=== PATIENT | male | born 1975 | race Caucasian/White ===

== ENCOUNTER 2018-08-20 17:50 | Emergency (ER) | payer BC ==
[~2018-08-20] VITALS: Ht 172.7 cm; Wt 85.5 kg
[~2018-08-20 17:50] MED LIST: ACCUPRIL5 MG PO; ADVAIR DISK1 INH; ALBUTEROL0.5 % IN; AZTREONAM IN; COLISTIMETHATE IN; CREON12000 UNT PO; KEFLEX250 MG PO; KEFLEX500 MG PO; LORTAB 5/3255 MG PO; MUPIROCIN2 % EX; PREVACID30 M1 OR; TRAMADOL HCL50 MG PO; ZITHROMAX250 MG OR; [UNRECOGNIZED DRUG - OTHER] INH; [UNRECOGNIZED DRUG - OTHER] OR
[2018-08-20 19:03] LABS: INFLUENZA B NONE DETECTED (NONE DETECT)
[2018-08-20] MEDS ORDERED: AZITHROMYCIN1 GM PO (19:17)
[2018-08-20] MEDS ORDERED: PULMOZYME1 MG/ML IN (19:18)
[2018-08-20] MEDS ORDERED: TRAMADOL HCL50 MG PO (19:18)
[2018-08-20] MEDS ORDERED: SERTRALINE50 MG PO (19:18)
[2018-08-20] MEDS ORDERED: [UNRECOGNIZED DRUG - OTHER] (20:00)
[2018-08-20] MEDS ORDERED: TOBI300 MG/5 M IN (20:01)
[2018-08-20 20:28] LABS: IMMATURE GRANULOCYTES 0.4 % (0.0-5.0); MEAN CELL VOLUME 87.4 fL CALC (80.0-100.0); MEAN CORPUSCULAR HGB 29.1 pG CALC (26.0-32.0); MEAN CORPUSCULAR HGB CONC 33.3 g/L CALC (32.0-36.0); NEUT# 6.58 thou/uL (1.82-7.42); RED BLOOD COUNT 4.61 mill/uL (4.70-6.10); RED CELL DISTRI WIDTH 13.2 % (11.5-15.5)
[2018-08-20 20:34] LABS: HEMATOCRIT 40.3 % (39.0-50.0); HEMOGLOBIN 13.4 g/dl (14.0-18.0)
[2018-08-20 20:43] LABS: ALKALINE PHOSPHATASE 62 u/l (38-126); ANION GAP 15 (6-22 (CALC)); BILIRUBIN, TOTAL 0.8 mg/dL (0.0-1.4); BUN 13 mg/dL (9-20); BUN/CREATININE RATIO 14 (12-20 (CALC)); CARBON DIOXIDE 24 mmol/l (22-30); CHLORIDE 102 mmol/l (95-108); CREATININE 0.9 mg/dL (0.7-1.3); GFR > 60 ML/MIN (>=60 (CALC)); GFR FOR AFR.AMER. > 60 ML/MIN (>=60 (CALC)); POTASSIUM 4.1 mmol/l (3.5-5.1); SGOT/AST 42 u/l (17-59); SODIUM 137 mmol/l (137-146)
[2018-08-20 20:45] LABS: ALBUMIN 4.2 g/dL (3.2-5.0); TOTAL PROTEIN 7.2 g/dL (6.3-8.2)
[2018-08-20 21:37] LABS: URINE BILIRUBIN - DIPSTICK NEGATIVE (NEGATIVE); URINE BLOOD DIPSTICK NEGATIVE (NEGATIVE); URINE COLOR YELLOW; URINE GLUCOSE - DIPSTICK NEGATIVE (NEGATIVE); URINE KETONE NEGATIVE (NEGATIVE); URINE LEUK ESTERASE NEGATIVE (NEGATIVE); URINE NITRITE - DIPSTICK NEGATIVE (Negative); URINE PH 6.5 (4.5-8.0); URINE PROTEIN - DIPSTICK NEGATIVE (NEG-TRACE); URINE UROBILINOGEN - DIPSTICK 0.2 E.U./dL (0.2)
[2018-08-20 21:38] LABS: URINE CLARITY CLEAR
[2018-08-20 22:49] VITALS: BP 122/67
== END 2018-08-20 22:49 | DRG 194 ==
LOC: ED 17:50
PROVIDERS: Emergency Medicine
DX: J10.1 Influenza due to other identified influenza virus with other respiratory manifestations (principal); E84.9 Cystic fibrosis, unspecified; J18.9 Pneumonia, unspecified organism; R05 Cough; R50.9 Fever, unspecified

== ENCOUNTER 2021-12-24 06:50 | Day surgery (SDC) | payer BC ==
[~2021-12-24] VITALS: Ht 172.7 cm; Wt 86.2 kg
[~2021-12-24 06:50] MED LIST changes: +AZITHROMYCIN1 GM PO; +FLONASE AL50 MCG/ACT PO; +PULMOZYME1 MG/ML IN; +SERTRALINE50 MG PO; +SYMDEKO PO; +SYNTHROID25 MCG PO; +TOBI300 MG/5 M IN; +[UNRECOGNIZED DRUG - OTHER]
[2021-12-24] MEDS ORDERED: ALBUTEROL SUL0.083 % IN (07:12)
[2021-12-24 09:55] VITALS: BP 110/78
== END 2021-12-24 09:40 | disposition home or self-care (01) | DRG 951 ==
LOC: ENDO 06:50 → ORM 08:45 → ENDO 09:40
PROVIDERS: ATTEND Surgery
PROC: 0DJD8ZZ Inspection of Lower Intestinal Tract, Via Natural or Artificial Opening Endoscopic (ICD-10-PCS; principal; 2021-12-24)
DX: Z12.11 Encounter for screening for malignant neoplasm of colon (principal); E84.9 Cystic fibrosis, unspecified; Z80.0 Family history of malignant neoplasm of digestive organs

== ENCOUNTER 2022-10-04 09:21 | Emergency (ER) | payer BC ==
[~2022-10-04] VITALS: Ht 172.7 cm; Wt 86.1 kg
[2022-10-04] VITALS (8 sets, daily range): BP systolic 120–148; BP diastolic 68–99
[~2022-10-04 09:21] MED LIST changes: +ALBUTEROL SUL0.083 % IN
[2022-10-04 10:41] LABS: EOS% 2.7 % (0-8); HEMATOCRIT 44.8 % (39.0-50.0); IMMATURE GRANULOCYTES 0.1 % (0.0-5.0); LYMPH% 22.2 % (15-41); MEAN CORPUSCULAR HGB 30.5 pG CALC (26.0-32.0); MEAN CORPUSCULAR HGB CONC 34.6 g/dL CAL (32.0-36.0); MONO% 7.7 % (2-13); NEUT# 5.71 thou/uL (1.82-7.42); NEUT% 66.3 % (42-76); RED BLOOD COUNT 5.09 mill/uL (4.70-6.10); RED CELL DISTRI WIDTH 13.1 % (11.5-15.5)
[2022-10-04 10:55] LABS: HEMOGLOBIN 15.5 g/dl (14.0-18.0)
[2022-10-04 11:06] LABS: ALKALINE PHOSPHATASE 54 u/l (38-126); BUN 18 mg/dL (9-20); BUN/CREATININE RATIO 19 (12-20 (CALC)); CHLORIDE 105 mmol/l (95-108); CREATININE 0.9 mg/dL (0.7-1.3); GFR FOR AFR.AMER. > 60 ML/MIN (>=60 (CALC)); GFR OTHER RACES > 60 ML/MIN (>=60 (CALC)); LIPASE 31 u/l (23-300); POTASSIUM 4.2 mmol/l (3.5-5.1); SGOT/AST 35 u/l (17-59); SODIUM 142 mmol/l (137-146); TOTAL PROTEIN 8.4 g/dL (6.3-8.2)
[2022-10-04 11:08] LABS: ANION GAP 12 (6-22 (CALC)); BILIRUBIN, TOTAL 0.4 mg/dL (0.0-1.4); CARBON DIOXIDE 29 mmol/l (22-30)
[2022-10-04 12:28] LABS: URINE BILIRUBIN - DIPSTICK NEGATIVE (NEGATIVE); URINE BLOOD DIPSTICK NEGATIVE (NEGATIVE); URINE COLOR YELLOW; URINE GLUCOSE - DIPSTICK NEGATIVE (NEGATIVE); URINE KETONE NEGATIVE (NEGATIVE); URINE LEUK ESTERASE NEGATIVE (NEGATIVE); URINE PH 6.5 (4.5-8.0); URINE PROTEIN - DIPSTICK NEGATIVE (NEG-TRACE); URINE UROBILINOGEN - DIPSTICK 0.2 E.U./dL (0.2)
[2022-10-04 12:29] LABS: URINE NITRITE - DIPSTICK NEGATIVE (Negative)
[2022-10-04] MEDS ORDERED: TRAMADOL HYDROC50 M1 PO (14:08)
[2022-10-04] MEDS ORDERED: MIRALAX17 GM/SCOO PO (14:08)
[2022-10-04] MEDS ORDERED: NAPROXEN500 MG PO (14:08)
== END 2022-10-04 15:33 | disposition home or self-care (01) | DRG 552 ==
LOC: ED 09:21
PROVIDERS: Family Medicine
DX: M54.50 Low back pain, unspecified (principal); R10.32 Left lower quadrant pain; R10.31 Right lower quadrant pain; K59.00 Constipation, unspecified; R31.9 Hematuria, unspecified

== ENCOUNTER 2024-11-01 09:13 | Day surgery (SDC) | payer BC ==
[~2024-11-01] VITALS: Ht 172.7 cm; Wt 86.2 kg
[~2024-11-01 09:13] MED LIST changes: +ATORVASTATIN CA40 MG PO; +CREON1 CAP; +LEVOTHYROXIN112 MC1 PO; +METFORMIN HCL500 M1 PO; +MIRALAX17 GM/SCOO PO; +MULTI VITAMIN1 TAB PO; +NAPROXEN500 MG PO; +PROAIR RES108 MCG/AC; +TIZANIDINE2 MG PO; +TRAMADOL HYDROC50 M1 PO; +[UNRECOGNIZED DRUG - OTHER] PO
[2024-11-01] MEDS ORDERED: FAMOTIDINE 10MG/ML 2ML SDV IV ONE (09:48)
[2024-11-01] MEDS ORDERED: SODIUM CHLORIDE 0.9% 100 ML IV ONE (09:48)
[2024-11-01] MEDS ORDERED: SODIUM CHLORIDE 0.9% 1,000 ML IV ONE ×2 (09:48→13:33)
[2024-11-01] MEDS ORDERED: ceFAZolin Sodium 2 GM/VIAL SDV ONE (09:48)
[2024-11-01] MEDS ORDERED: SODIUM CHLORIDE 20 ML/VIAL SDV ONE (10:12)
[2024-11-01] MEDS ORDERED: BUPIVACAINE 133 MG/10 ML VIAL IJ ONE (10:13)
[2024-11-01] MEDS ORDERED: PERCOCET 5/325M1 TAB PO (11:27)
[2024-11-01] MEDS ORDERED: MIDAZOLAM HCL 2 MG/2 ML VIAL IV ONE (12:11)
[2024-11-01] MEDS ORDERED: SODIUM CHLORIDE 0.9% 1,000 ML BAG IV ONE (12:11)
[2024-11-01] MEDS ORDERED: PROPOFOL 200 MG/20 ML VIAL IV ONE (12:11)
[2024-11-01] MEDS ORDERED: ACETAMINOPHEN 100 ML IV ONE (12:29)
[2024-11-01] MEDS ORDERED: LIDOCAINE HCL 2 % JELLY ONE (14:39)
[2024-11-01 15:10] VITALS: BP 152/97
== END 2024-11-01 15:22 | disposition home or self-care (01) | DRG 351 ==
LOC: ORM 09:13
PROVIDERS: ATTEND Surgery
PROC: 0YU50JZ Supplement Right Inguinal Region with Synthetic Substitute, Open Approach (ICD-10-PCS; principal; 2024-11-01)
DX: K40.20 Bilateral inguinal hernia, without obstruction or gangrene, not specified as recurrent (principal); E84.9 Cystic fibrosis, unspecified; D17.6 Benign lipomatous neoplasm of spermatic cord; E11.9 Type 2 diabetes mellitus without complications; Z76.82 Awaiting organ transplant status; K40.90 Unilateral inguinal hernia, without obstruction or gangrene, not specified as recurrent; Z01.818 Encounter for other preprocedural examination; Z11.52 Encounter for screening for COVID-19
CPT/HCPCS: J0131; J0666; J0690

== ENCOUNTER 2024-11-27 07:14 | Day surgery (SDC) | payer BC ==
[~2024-11-27] VITALS: Ht 172.7 cm; Wt 84.4 kg
[~2024-11-27 07:14] MED LIST changes: +PERCOCET 5/325M1 TAB PO; +ZITHROMAX250 MG PO
[2024-11-27] MEDS ORDERED: ceFAZolin Sodium 2 GM/VIAL SDV ONE (07:31)
[2024-11-27] MEDS ORDERED: SODIUM CHLORIDE 0.9% 1,000 ML IV ONE ×2 (07:31→12:20)
[2024-11-27] MEDS ORDERED: SODIUM CHLORIDE 0.9% 100 ML IV ONE (07:32)
[2024-11-27] MEDS ORDERED: SODIUM CHLORIDE 20 ML/VIAL SDV ONE (07:46)
[2024-11-27] MEDS ORDERED: BUPIVACAINE HCL 0.25% 25 MG/10 ML SDV ONE (07:48)
[2024-11-27] MEDS ORDERED: BUPIVACAINE 133 MG/10 ML VIAL IJ ONE (07:48)
[2024-11-27] MEDS ORDERED: FAMOTIDINE 10MG/ML 2ML SDV IV ONE (08:04)
[2024-11-27] MEDS ORDERED: SODIUM CHLORIDE 0.9% 1,000 ML BAG IV ONE (09:13)
[2024-11-27] MEDS ORDERED: MIDAZOLAM HCL 2 MG/2 ML VIAL IV ONE (09:13)
[2024-11-27] MEDS ORDERED: KETOROLAC TROMETHAMINE 30 MG/ML SDV ONE (10:17)
[2024-11-27] MEDS ORDERED: ACETAMINOPHEN 100 ML IV ONE (10:17)
[2024-11-27] MEDS ORDERED: SODIUM CHLORIDE 1,000 ML BTL IR ONE (10:48)
[2024-11-27] MEDS ORDERED: STERILE WATER FOR IRRIGATION 500 ML BTL IR ONE (10:48)
[2024-11-27] MEDS ORDERED: HYDROmorphone HCL 2 MG/AMP ONE (12:18)
[2024-11-27] MEDS ORDERED: LIDOCAINE HCL 2 % JELLY ONE (12:57)
[2024-11-27 14:32] VITALS: BP 139/86
== END 2024-11-27 14:29 | disposition home or self-care (01) | DRG 351 ==
LOC: ORM 07:14
PROVIDERS: ATTEND Surgery
PROC: 0YU60JZ Supplement Left Inguinal Region with Synthetic Substitute, Open Approach (ICD-10-PCS; principal; 2024-11-27)
DX: K40.90 Unilateral inguinal hernia, without obstruction or gangrene, not specified as recurrent (principal); E84.9 Cystic fibrosis, unspecified; D17.6 Benign lipomatous neoplasm of spermatic cord; E11.9 Type 2 diabetes mellitus without complications; Z79.84 Long term (current) use of oral hypoglycemic drugs; Z01.818 Encounter for other preprocedural examination; Z11.52 Encounter for screening for COVID-19; Z87.19 Personal history of other diseases of the digestive system; K21.9 Gastro-esophageal reflux disease without esophagitis; E03.9 Hypothyroidism, unspecified; E78.5 Hyperlipidemia, unspecified; F10.10 Alcohol abuse, uncomplicated; Z98.890 Other specified postprocedural states
CPT/HCPCS: J0131; J0666; J0690; J1171